=== PATIENT | female | born 1970 | race Two or more races ===

== ENCOUNTER → 2024-05-03 | Outpatient (CLI) | payer MEDICAID, SELFPAY ==
--- NOTE | 2024-05-03 08:00 | XR_ITS ---
Examination: Screening digital mammography, bilateral Computer aided detection 3-D breast Tomosynthesis, bilateral Date and time of exam: May 03, 2024 0804 hours Compared to mammograms dating to March 29, 2016 Indication: Screening Technique: Nonmagnified MLO, CC views of the breasts to been obtained, reconstructed from 3-D Tomosynthesis images. R2 computer aided detection program utilized for evaluation of suspicious masses and/or abnormal calcifications. 3-D Tomosynthesis images obtained. Findings: The breasts are heterogeneously dense, which may obscure small masses 10 mm nodule partially indistinct margins outer lower left breast mid depth Benign calcifications Impression: BI-RADS Category 0: Incomplete: Need additional imaging evaluation 10 mm nodule partially indistinct margins outer lower left breast mid depth, recommend follow-up spot tomographic views of this nodule as well as left breast sonography to complete the workup
== END | disposition home or self-care (01) ==
LOC: CDIM 07:54
PROVIDERS: Referring Provider Physician Assistant; Visit Provider Physician Assistant
DX: Z12.31 Encounter for screening mammogram for malignant neoplasm of breast (principal); R92.1 Mammographic calcification found on diagnostic imaging of breast; N63.23 Unspecified lump in the left breast, lower outer quadrant
CPT/HCPCS: 77063; 77067

== ENCOUNTER → 2024-07-21 | Outpatient (CLI) | payer MEDICAID, SELFPAY ==
--- NOTE | 2024-07-21 13:00 | XR_ITS ---
Examination: Breast ultrasound, unilateral, left complete Date and time of exam: July 21, 2024 1339 hours INDICATIONS: Mammogram May 03, 2024 10 mm nodule indistinct margins outer lower left breast Technique: Real-time fraire scale ultrasonographic imaging performed left breast including all 4 quadrants as well as nipple retroareolar and axillary region. Findings: 10:00 oval mass hyperechoic 6 x 3 x 6 mm IMPRESSION: BI-RADS Category 3: Probably benign lipoma 10:00 position left breast, one additional 6 month left breast sonogram follow-up is needed to document stability of this nodule
--- NOTE | 2024-07-21 13:45 | XR_ITS ---
Examination: Diagnostic digital mammography, unilateral, left Computer aided detection 3-D breast Tomosynthesis, unilateral Date and time of exam: July 21, 2024 1349 hours INDICATIONS: Mammogram May 03, 2024 10 mm nodule outer lower left breast mid depth Technique: Nonmagnified MLO, CC views of the left breast have been obtained, reconstructed from 3-D Tomosynthesis images. R2 computer aided detection program utilized for evaluation of suspicious masses and/or abnormal calcifications. 3-D Tomosynthesis images obtained. Findings: The breast is heterogeneously dense, which may obscure small masses Suspicious nodule is not depicted on the current study Impression: BI-RADS category 2: Benign findings Return to yearly follow-up mammography Please see the left breast sonogram report today indicating 6 month follow-up to document stability of 10:00 nodule
== END | disposition home or self-care (01) ==
PROVIDERS: PCP Physician Assistant; Referring Provider Physician Assistant; Visit Provider Physician Assistant
DX: R92.323 Mammographic fibroglandular density, bilateral breasts (principal); N63.22 Unspecified lump in the left breast, upper inner quadrant
CPT/HCPCS: 76641; 77061; 77065; G0279

== ENCOUNTER 2025-04-13 08:41 | Emergency (ER) | payer MEDICAID, SELFPAY ==
[2025-04-13 08:42] VITALS: BMI 26.7
[2025-04-13 08:47] VITALS: BP 154/98; PULSE 73; RESP 16; TEMP 36.6; O2SAT 99
--- NOTE | 2025-04-13 08:59 | XR_ITS ---
EXAMINATION: Lumbar spine 3 views TECHNIQUE: AP lateral, lateral lower lumbar spine 3 views Date and time: April 13, 2025, 0921 hours INDICATION: Patient fell last week with injury to lower back, lower back pain. FINDINGS: No acute lumbar fracture Grade 1 anterolisthesis L4 on L5 with advanced degenerative disc disease at this level No cortical bone destruction IMPRESSION: No acute lumbar fracture
--- NOTE | 2025-04-13 08:59 | XR_ITS ---
Examination: Right hip AP, lateral, AP pelvis 3 views Technique: Hip AP lateral, AP pelvis, 3 views Exam date and time: April 13, 2025, 0911 hours INDICATIONS: Right hip pain beginning 1 week ago after a fall FINDINGS: No right hip fracture or dislocation Left hip bones of the pelvis intact IMPRESSION: No acute right hip fracture or dislocation.
[2025-04-13] MEDS: KETOROLAC INJ 30 MG/ML VIAL IM (09:09)
[2025-04-13 09:50] LABS: HCG Qualitative,Urine Negative
--- NOTE | 2025-04-13 11:11 | EDNOTE_ITS ---
ED Back Injury Pain RME/HPI General Chief Complaint: Back Pain/Injury Stated Complaint: LOWER BACK PAIN Time Seen by Provider: 04/13/25 08:52 Arrival date/time: 04/13/25 08:41 54-year-old female history of chronic back pain presents to the emergency department today for complaints of lower back pain radiating down the right leg today patient reports no saddle anesthesia no loss of bowel or bladder no fever nausea or vomiting Limitations: no limitations Related Data Home Medications ?Medication ?Instructions ?Recorded ?Confirmed atorvastatin 20 mg tablet 20 mg PO QDAY 12/12/2212/12 cyclobenzaprine 5 mg tablet 5 mg PO HS PRN Muscle Spas m 12/12/22 12/12/22 diclofenac sodium 75 mg 75 mg PO BID 12/12/22 tablet,delayed release estazolam 2 mg tablet 2 mg PO HS PRN Insomnia 11/3012/12/22 sertraline 50 mg tablet 50 mg PO QDAY 12/12/2212/12 Previous Rx's ?Medication ?Instructions ?Recorded cyclobenzaprine 10 mg tablet 10 mg PO TID PRN muscle s pasm 10 04/13/25 days #30 tab-caps ibuprofen 800 mg tablet 800 mg PO TID PRN pain #30 t abs 04/13/25 Allergies Allergy/AdvReac Type Severity Reaction Status Date / Time NKA* Allergy Uncoded 04/13/25 08:44 Review of Systems Review of Systems Systems Reviewed: All systems reviewed, normal except as documented Constitutional Constitutional: Reports system reviewed and no additional complaints, except as documented, Denies fever(s) and Denies headache(s) Eyes Eyes: Reports system reviewed and no additional complaints, except as documented and Denies blurry vision ENT Ears, Nose, Mouth, and Throat: Reports system reviewed and no additional complaints, except as documented, Denies headache(s), Denies nasal congestion and Denies nasal discharge Cardiovascular Cardiovascular: Reports system reviewed and no additional complaints, except as documented, Denies chest pain and Denies dyspnea Respiratory Respiratory: Reports system reviewed and no additional complaints, except as documented, Denies chest congestion, Denies cough and Denies dyspnea Gastrointestinal Gastrointestinal: Reports system reviewed and no additional complaints, except as documented and Denies abdominal pain Musculoskeletal Musculoskeletal: Reports system reviewed and no additional complaints, except as documented, Denies abnormal gait, Denies arthralgias, Reports back pain, Denies numbness, Reports stiffness and Denies tingling Integumentary/Breasts Skin/Breast: Reports system reviewed and no additional complaints, except as documented and Denies rash Neurologic Neurologic: Reports system reviewed and no additional complaints, except as documented, Reports as per HPI, Denies abnormal gait, Denies headache(s), Denies numbness and Denies tingling Past Medical History Past Medical History NEUROLOGIC: Negative Neurological Disorders or Seizures CARDIAC: Positive Cardiac Disorders and Hypercholesterolemia; Negative Congestive Heart Failure RESPIRATORY: Negative Chronic Obstructive Pulmonary Disease (COPD) GASTROINTESTINAL: Positive Gastrointestinal Disorders (fatty liver), Gall Bladder Disease and Obesity; Negative Hepatitis GENITOURINARY: Negative Genitourinary Disorders or Renal Disease REPRODUCTIVE: Positive Previous Pregnancies; Negative Pelvic Inflammatory Disease MUSCULOSKELETAL: Positive Musculoskeletal Disorders and Arthritis (pain right knee) ENDOCRINE: Positive Endocrine Disorders and Diabetes Mellitus Type 2 (was told prediabetic no meds prescribed); Negative Diabetes Mellitus Type 1 HEMATOLOGIC: Positive Blood Disorders and Anemia PSYCHO/SOCIAL: Positive Depression and Anxiety OTHER HISTORY: Negative Hospitalization, Autoimmune Disease, Shingles, Blood Transfusions, Blood Transfusion Reaction, Anesthesia Reactions, MRSA or Cancer Family History FAMILY HISTORY: Positive Family Cancer and Family Surgery; Negative Family Psychiatric Problems, Family Respiratory Disorders, Family Cardiac Disorders, Family Gastrointestinal Problems or Family Anesthesia Reaction Social History SMOKING STATUS: Never smoker ED Exam General Limitations: Present no limitations General appearance: Present alert and in no apparent distress Head Head exam: Present atraumatic Eye Eye exam: Present normal appearance, PERRL and EOMI; Absent conjunctival injection ENT ENT exam: Present normal exam, normal oropharynx and mucous membranes moist Neck Neck exam: Present normal inspection, full ROM and trachea midline Chest Chest inspection: Present normal inspection and symmetric chest wall rise Respiratory Respiratory exam: Present normal lung sounds bilaterally; Absent respiratory distress Cardiovascular Cardiovascular exam: Present regular rate, normal rhythm and normal heart sounds Abdominal Exam Abdominal exam: Present soft and normal bowel sounds; Absent distention, tenderness, guarding, rebound or rigidity Extremities Exam Extremities exam: Present normal inspection and full ROM Back Exam Back exam: Present normal inspection and full ROM Neurological Exam Neurological exam: Present alert, oriented X3 and CN II-XII intact Psychiatric Psychiatric exam: Present normal affect and normal mood Skin Skin exam: Present warm, dry, intact and normal color Course Quality Measures none Orders Category Date Time Status XR hip RT w pelvis 2-3V Stat Exams 04/13/25 08:59 Completed XR lumbar spine 2-3V Stat Exams 04/13/25 08:59 Completed HCG Qualitative,Urine Stat Lab 04/13/25 09:38 Completed Ketorolac Inj [Toradol Inj] Med 04/13/25 08:59 Discontinued 30 mg IM X1 ONE Vital Signs Vital signs: Vital Signs Temperature 97.9 F 04/13/25 08:47 Pulse Rate 73 04/13/25 08:47 Respiratory Rate 16 04/13/25 08:47 Blood Pressure 154/98 H 04/13/25 08:47 Pulse Oximetry (%) 99 04/13/25 08:47 Oxygen Delivery Method Room Air 04/13/25 08:47 O2 saturation 99% room air within normal limits Back Pain / Injury MDM Narrative MDM Narrative:: 54-year-old female history of chronic back pain presents to the emergency department today for complaints of lower back pain radiating down the right leg today patient reports no saddle anesthesia no loss of bowel or bladder no fever nausea or vomiting On exam patient well-appearing does not appear ill or toxic no acute distress Reviewed patient's previous MRIs New x-rays obtained no acute emergent findings noted As patient has no saddle esthesia no loss of bowel or bladder patient walks with steady gait patient be discharged home at this time Patient discharged home in no distress to follow-up with primary care doctor in the next 24 to 48 hours and for any worsening symptoms to return to the ER immediately Patient data External records reviewed:: [facility] previous records Clinical information provided by:: patient Social determinants that could affect healthcare access:: none Patient has the following chronic illnesses:: See history How is presenting disease/condition affected by chronic disease/condition?: caused by Evaluation data The following diagnostics were reviewed and interpreted by me:: radiology exam(s) Lab and/or radiology exams considered but not ordered:: Radiology obtain Interpretation Summary: Reviewed by me Medications / Prescriptions Medications or Prescriptions considered but not ordered:: Given Medication administrations:: Medication Administration History Discontinued Medications Ketorolac Tromethamine (Ketorolac Inj 30 Mg/Ml Vial) 30 mg IM X1 ONE Stop: 04/13/25 09:00 Last Admin: 04/13/25 09:09 Dose: 30 mg Documented By: Given Consultations Consultation(s) initiated? (list below): No Diagnosis Differential diagnosis back pain/injury: lumbar radiculopathy, sciatica and strain of lumbar region Most likely diagnosis given after review of the tests above:: Back pain Admission Indicated Admission indicated?: not indicated Admission Request Was there a request for admission?: No Disposition Plan Disposition Plan: Discharge Discharge Attestation Discharge Attestation: The patient and all family members were given an opportunity to ask questions and understood the discharge instructions. Discharge instructions specifically effects, indications for sooner follow up or return to the emergency department, and the expected course of current diagnosis. Patient condition: Stable Discharge Plan Plan Patient Disposition: HOME (Self Care) Discharge Disposition comment: Stable Prescriptions/Referrals Prescriptions/Med Rec: New cyclobenzaprine 10 mg tablet 10 mg PO TID PRN (Reason: muscle spasm) 10 Days Qty: 30 0RF ibuprofen 800 mg tablet 800 mg PO TID PRN (Reason: pain) Qty: 30 0RF No Action estazolam 2 mg Tablet 2 mg PO HS PRN (Reason: Insomnia) atorvastatin 20 mg Tablet 20 mg PO QDAY diclofenac sodium 75 mg Tablet,Delayed Release (Dr/Ec) 75 mg PO BID sertraline 50 mg Tablet 50 mg PO QDAY cyclobenzaprine 5 mg Tablet 5 mg PO HS PRN (Reason: Muscle Spasm) Problem List Clinical Impression: Acute exacerbation of chronic low back pain Patient/Caregiver Discharge Instructions Education Materials: Medicine for Pain Additional Instructions: Please follow up with your primary care doctor in the next 24-48hrs for any worsening symptoms return here immediately Print Language: Polish Stand Alone Forms: [facility] Award Info., Patient Portal Info Letter PA/LABOR DELIVERY SPECIALIST Supervising Physician PA/LABOR DELIVERY SPECIALIST Supervising Physician: Dr. Bellamy
== END 2025-04-13 10:20 | disposition home or self-care (01) ==
LOC: SERX 10:38
PROVIDERS: Emergency Provider Nurse Practitioner Primary Care
DX: G89.29 Other chronic pain (principal); M54.50 Low back pain, unspecified
CPT/HCPCS: 72100; 73502; 81025; 96372; 99283; J1885